=== PATIENT | male | born 1970 | race Caucasian/White ===

== ENCOUNTER → 2018-02-01 | Outpatient (CLI) | payer BC ==
--- NOTE | 2018-02-02 10:01 | MRI ---
STUDY: MRI OF THE LUMBAR SPINE HISTORY: Low back pain. Comparison: None. Technique: Multiplanar multi-sequence MRI of the lumbar spine was performed. Sagittal T1, sagittal T 2, and STIR images, axial T1, and axial T2 images were obtained. Findings: Sagittal images: Vertebral body heights and alignment are within normal limits. Marrow signal is age-appropriate. Ther e is multilevel degenerative disc disease, most notable at L5/S1. Schmorl's nodes are noted at T11, T 12 and L1. The conus medullaris is normal in appearance terminating at the level of L1/2. Axial images: T12 -- L1: There is a shallow disc bulge, bilateral facet arthropathy and ligamentum flavum infolding . The central canal and neural foramina are adequate. L1 -- L2: There is a shallow disc bulge, bilateral facet arthropathy and ligamentum flavum infolding. The central canal and neural foramina are adequate. L2 -- L3: There is bilateral facet arthropathy and ligamentum flavum infolding. The central canal and neural foramina are adequate. L3 -- L4: There is bilateral facet arthropathy and ligamentum flavum infolding. The central canal and neural foramina are adequate. L4 -- L5: There is bilateral facet arthropathy and ligamentum flavum infolding. The central canal and neural foramina are adequate. There is a broad-based disc bulge, with left paracentral focal disc he rniation L5 -- S1: There is a broad-based disc bulge with central and left paracentral focal disc herniation. There is bilateral facet arthropathy. The central canal and right neural foramen are adequate. There is mild left neural foraminal stenosis. IMPRESSION: 1. Mild multilevel lumbar spondylosis. 2. No evidence of significant spinal stenosis. 3. Mild left neural foraminal stenosis at L5/S1. Reported By:
== END | disposition home or self-care (01) | DRG 552 ==
LOC: RAD 14:29
PROVIDERS: ATTEND Internal Medicine
DX: M54.5 Low back pain (principal); M47.896 Other spondylosis, lumbar region; M48.07 Spinal stenosis, lumbosacral region
CPT/HCPCS: 72148